=== PATIENT | female | born 1945 | race Hispanic/Latino ===

== ENCOUNTER 2016-11-02 07:39 | Outpatient (CLI) | payer MEDICARE ==
[2016-11-02 08:41] LABS: Blood Urea Nitrogen 14 mg/dL (7-17)
[2016-11-02] MEDS ORDERED: NACL ONE (09:08)
--- NOTE | 2016-11-02 11:18 | Cat Scan Report ---
CT CHEST, ABDOMEN AND PELVIS WITH CONTRAST INDICATION: Lung cancer. COMPARISON: None similar. FINDINGS: Chest, abdomen and pelvis CT performed following oral contrast and intravenous administration of 100 cc of Omnipaque 300. CHEST: Normal heart size. Small pericardial effusion with maximum thickness 1.3 cm anteriorly near the apex, axial image 152, series 2. No aortic aneurysm or dissection. Few atherosclerotic calcifications. No suspicious pulmonary arterial filling defects. No size significant right paratracheal or right hilar lymphadenopathy. Left hilar/suprahilar lymphadenopathy/mass is approximately 3.2 x 1.7 cm, axial image 95, series 2 and 3 cm craniocaudal, also partly encasing/contacting the left upper lobe pulmonary artery branch. No size significant axillary lymphadenopathy. Left upper anterior chest wall port tip extends into the SVC. Mild emphysematous changes, greatest in the upper lobes. Approximately 2.2 x 1.2 cm left upper lobe slightly irregular mass noted on axial image 54, series 2. An approximately 5 mm nonspecific peripheral right lower lobe pleural-based nodular density also seen on axial image 182. Another 1 cm slightly spiculated right upper lobe mass/density also noted, axial image 75, series 2. Presumed postradiation fibrosis in both upper lobes anteromedially, right more than left with greatest focal consolidation approximately 2.7 x 1.6 on the right, axial image 94. Please correlate. Patent central airway. Nonspecific distal esophageal wall prominence/thickening, not excluded for gastroesophageal reflux and/or hiatal hernia, amongst others. ABDOMEN: At least 3 hypodense left hepatic lobe metastases suspected as approximately 1 cm near the dome, axial image 291, series 2, the other centrally measuring 0.8 cm, axial image 323 and the third 1.7 cm in the left hepatic lobe anteriorly with overlying cortical lobulation on axial image 344. Few other subcentimeter, indeterminate hepatic hypodensities noted throughout both right and left lobes as well. Patent veins. No biliary dilatation. Spleen, gallbladder, pancreas, adrenals, nonaneurysmal abdominal aorta with moderate atherosclerotic aortoiliac calcifications, IVC and kidneys within normal limits. No ascites or significant adenopathy. SMA atherosclerotic changes also noted. Opacified GI tract within normal limits. Normal appendix extending into the right hemipelvis. Mild colonic stool. Few descending colon diverticuli. PELVIS: Mild proximal sigmoid diverticulosis. Approximately 2 cm left adnexal/ovarian simple cyst, axial image 503. Otherwise unremarkable uterus, adnexa/ovaries, suboptimally distended urinary bladder and the rectosigmoid. No free fluid or significant adenopathy. Bilateral inguinal canal region fatty prominence. Approximately 5 mm anterolisthesis of L4 over L5 with advanced bilateral facet arthropathy as well. Slight L5-S1 vacuum disc phenomenon. Additional mild multilevel imaged spinal degenerative spurring. Approximately 5 mm T3 vertebral body sclerotic focus nonspecific for a bone island versus metastasis. Demineralized bones. CONCLUSION: 1. Bilateral upper lobe lung masses with left hilar/suprahilar mass/lymphadenopathy and a small noncalcified peripheral right lower lobe nodule, as described. Presumed bilateral mid ling zone postradiation fibrosis anteriorly, right greater than left as well, as detailed above. 2. Hepatic metastases and numerous other subcentimeter, indeterminate hepatic hypodensities. Nonspecific T3 vertebral body sclerotic focus as well. 3. Various other findings, including small pericardial effusion, left chest port, mild emphysematous changes, atherosclerotic changes, mild diverticulosis and few bony degenerative changes, amongst others, as detailed above. Thank you for the opportunity to participate in this patient's care.
--- NOTE | 2016-11-02 15:08 | Nuclear Medicine Report ---
BONE SCAN: History: Staging of lung cancer. After injection of isotope, gamma camera imaging of the bony system was done. There is a normal uptake of isotope throughout the bony structures without areas of significantly increased or decreased uptake. Normal uptake in the urinary system is seen. IMPRESSION: Normal bone scan.
== END 2016-11-02 07:40 | disposition home or self-care (01) ==
LOC: NM 07:39
PROVIDERS: ATTEND Internal Medicine Hematology & Oncology
DX: C78.7 Secondary malignant neoplasm of liver and intrahepatic bile duct (principal); C34.12 Malignant neoplasm of upper lobe, left bronchus or lung; C34.11 Malignant neoplasm of upper lobe, right bronchus or lung; I70.0 Atherosclerosis of aorta; K57.30 Diverticulosis of large intestine without perforation or abscess without bleeding; N83.292 Other ovarian cyst, left side; N32.89 Other specified disorders of bladder; M12.88 Other specific arthropathies, not elsewhere classified, other specified site; I31.3 Pericardial effusion (noninflammatory); J43.9 Emphysema, unspecified
CPT/HCPCS: 36415; 71260; 74177; 78306; 82565; 84520; A9503; Q9967

== ENCOUNTER 2017-02-05 09:53 | Outpatient (CLI) | payer MEDICARE ==
[2017-02-05 11:00] LABS: Blood Urea Nitrogen 11 mg/dL (7-17)
--- NOTE | 2017-02-05 23:33 | Cat Scan Report ---
FINAL REPORT PROCEDURE: CT CHEST W CON TECHNIQUE: Computerized axial tomography of the chest was performed during the IV injection of iodinated nonionic contrast. HISTORY: MALIGNANT NEOPLASM OF UNSPECIFIED PART OF BRONCHUS OR LUNG COMPARISON: No prior studies are available for comparison. TECHNICAL QUALITY: Satisfactory. FINDINGS: Irregular scarring is noted involving right upper lobe. A small irregular nodule measuring about 6 millimeters by 5 millimeters is noted within the scar. Irregular atelectatic changes noted involving medial portion of right upper lobe which does not have appearance of a mass lesion. An irregular left hilar mass is identified encasing and also possibly invading the left upper lobe bronchus with extension into the left perihilar region. There is complete occlusion of the left upper lobe bronchus. This mass also is causing narrowing of the left upper lobe pulmonary vein. A cluster of nodular densities are noted in the left upper lobe largest measuring 8 millimeters x 14 millimeters. The hilar/perihilar mass measures about 4.3 x 3.4 by 3.0 centimeters. Superior mediastinal lymphadenopathy is noted in the prevascular region largest measuring 1.3 centimeters in short axis. Thyroid demonstrates normal density. Aorta is of normal caliber. Minimal degree pericardial effusion is identified. IMPRESSION: A left hilar and perihilar mass possibly invading the left upper lobe bronchus resulting in complete occlusion and significant extensive compression over the left upper lobe pulmonary vein most likely represents lung carcinoma. Small nodules are identified in the left upper lobe. There is mild degree superior mediastinal lymphadenopathy. Irregular scarring with nodular appearance in the right upper lobe most likely represents an old inflammatory process. Comparison with any prior studies would be of help.
--- NOTE | 2017-02-05 23:48 | Cat Scan Report ---
FINAL REPORT PROCEDURE: CT ABDOMEN PELVIS W CON TECHNIQUE: Computerized axial tomography of the abdomen and pelvis was performed after the IV injection of iodinated nonionic contrast. HISTORY: MALIGNANT NEOPLASM OF PART OF BRONCHUS OR LUNG COMPARISON: No prior studies are available for comparison. FINDINGS: Several hypodense lesions are identified throughout the liver. Spleen, pancreas, adrenal glands and kidneys demonstrate normal enhancement. There is no obstructive uropathy. Aorta is of normal caliber. There is no free fluid or free air. Gallbladder is unremarkable. Small bowel loops are within normal limits. Moderate amount of residual stool is noted. Appendix is normal. Uterus is unremarkable. There are no adnexal masses. Bones are osteopenic. Moderate degree degenerative changes are noted involving the lumbar spine. Vertebral height is within normal limits. IMPRESSION: Extensive involvement of the liver by a multiple focal lesions most likely representing metastatic disease.
--- NOTE | 2017-02-06 07:40 | Nuclear Medicine Report ---
BONE SCAN: History: Bone pain. Comparison: Bone scan dated 11/02/16. CT chest abdomen and pelvis performed the same day. Findings: There is normal renal, soft tissue and bony uptake. Mild increased uptake is identified in both shoulder regions, right greater than left. This is not significantly changed from previous exams. The right shoulder region is partially imaged on CT chest and demonstrates degenerative changes but no obvious bony lesion. There is mild uptake at the level of L4-5 consistent with facet arthropathy. No focal uptake consistent with metastatic disease or fracture is appreciated. IMPRESSION: No change. Probable degenerative uptake in both shoulders and lumbar spine as outlined above which is unchanged.
== END 2017-02-05 09:54 | disposition home or self-care (01) ==
LOC: NM 09:53
PROVIDERS: ATTEND Internal Medicine Hematology & Oncology
DX: C34.11 Malignant neoplasm of upper lobe, right bronchus or lung (principal); C34.12 Malignant neoplasm of upper lobe, left bronchus or lung; K76.89 Other specified diseases of liver; M47.896 Other spondylosis, lumbar region; J98.4 Other disorders of lung; I31.3 Pericardial effusion (noninflammatory); M89.9 Disorder of bone, unspecified
CPT/HCPCS: 36415; 71260; 74177; 78306; 82565; 84520; A9503; Q9967

== ENCOUNTER 2017-03-23 09:30 | Outpatient (CLI) | payer MEDICARE ==
--- NOTE | 2017-03-23 10:20 | XRay Report ---
Chest 2 views: History: Lung cancer. Findings: Normal cardiomediastinal silhouette. Trachea is midline. Tip of [id number] mid superior vena cava. Evidence of emphysema. More pronounced in the left lung. No acute consolidation or mass. Impression: Emphysema. No acute lung changes.
== END 2017-03-23 09:31 | disposition home or self-care (01) ==
LOC: SPVIMAG 09:30
PROVIDERS: ATTEND Internal Medicine Hematology & Oncology
DX: C34.11 Malignant neoplasm of upper lobe, right bronchus or lung (principal); J43.9 Emphysema, unspecified
CPT/HCPCS: 71046